=== PATIENT | female | born 1945 | race Hispanic/Latino ===

== ENCOUNTER → 2020-10-21 | Outpatient (CLI) | payer MEDICARE ==
[~2020-10-21] MED LIST: AMLODIPINE BES2.5 MG PO; FAMOTIDINE20 MG PO; HUMULIN R SC; IOPAMIDOL 370 MG/ML 200 ML INFUS..BTL INJ ONE; LOSARTAN POTASS25 MG PO; OMEPRAZOLE40 MG PO; OXYBUTYNIN CHLOR5 M1 PO; SIMVASTATIN40 MG PO; SODIUM CHLORIDE 0.9% 500ML 500 ML ONE; SODIUM CHLORIDE 0.9% 50ML 50 ML ONE
[2020-10-21 11:59] LABS: CREATININE, SERUM 1.12 mg/dL (0.57-1.11)
== END ==
LOC: CT 10:53
PROVIDERS: ATTEND Internal Medicine Gastroenterology
DX: R10.10 Upper abdominal pain, unspecified (principal)
CPT/HCPCS: 36415; 74160; 82565; 84520; 96360; J7040; Q9967

== ENCOUNTER → 2020-10-27 | Day surgery (SDC) | payer MEDICARE ==
[2020-10-24 10:02] LABS: BASOPHILS # (AUTO) 0.1 (0.0-0.1); BASOPHILS % 0.7 % (0.0-1.0); EOSINOPHILS # (AUTO) 0.4 (0.0-0.4); EOSINOPHILS % 4.8 % (0.0-6.0); HEMATOCRIT 39.1 % (34.2-44.1); HEMOGLOBIN 13.3 g/dL (12.0-16.0); LYMPHOCYTES # (AUTO) 1.7 (1.0-3.2); LYMPHOCYTES % 20.4 % (18.0-39.1); MEAN CORPUSCULAR HEMOGLOBIN 30.7 pg (28-32); MEAN CORPUSCULAR VOLUME 90.3 fL (81-99); MONOCYTES # (AUTO) 0.9 (0.2-0.8); MONOCYTES % 10.8 % (4.4-11.3); NEUTROPHILS # (AUTO) 5.3 (2.1-6.9); NEUTROPHILS % 62.9 % (38.7-80.0); PLATELET COUNT 277 x10e3/uL (140-360); RED BLOOD COUNT 4.33 x10e6/uL (3.6-5.1); RED CELL DISTRIBUTION WIDTH 12.2 % (11.7-14.4)
[~2020-10-27] MED LIST changes: +FENTANYL CITRATE/PF 100MCG/2 ML INJ ONE; +GLUCAGON FOR INJ 1 MG VIAL ONE; +HYOSCYAMINE SULFATE 0.5 MG/ML INJ ONE; -IOPAMIDOL 370 MG/ML 200 ML INFUS..BTL INJ ONE; +LIDOCAINE HCL 2% LOCAL INJ 5 ML SDV VIAL INJ ONE; +PROPOFOL IV EMULSION 10 MG/ML 20 ML VIAL ONE; -SODIUM CHLORIDE 0.9% 500ML 500 ML ONE; -SODIUM CHLORIDE 0.9% 50ML 50 ML ONE
[2020-10-27 16:42] VITALS: BP 149/88
== END | disposition home or self-care (01) ==
LOC: OR 12:30
PROVIDERS: ATTEND Internal Medicine Gastroenterology
DX: K21.9 Gastro-esophageal reflux disease without esophagitis (principal); K63.5 Polyp of colon; K31.7 Polyp of stomach and duodenum; K29.70 Gastritis, unspecified, without bleeding; K20.90 Esophagitis, unspecified without bleeding; K44.9 Diaphragmatic hernia without obstruction or gangrene; K57.30 Diverticulosis of large intestine without perforation or abscess without bleeding; K64.8 Other hemorrhoids; R68.89 Other general symptoms and signs; J39.2 Other diseases of pharynx; I10 Essential (primary) hypertension; E11.9 Type 2 diabetes mellitus without complications; R05 Cough; Z01.810 Encounter for preprocedural cardiovascular examination; Z01.812 Encounter for preprocedural laboratory examination; Z20.822 Contact with and (suspected) exposure to COVID-19; Z79.4 Long term (current) use of insulin; Z68.27 Body mass index [BMI] 27.0-27.9, adult
CPT/HCPCS: 36415 ×2; 43239; 45385; 82948; 85025; 88305; 88312; 93005; J1610; J1980; J2001; J2704; J3010; U0002; 45378

== ENCOUNTER → 2020-11-02 | Outpatient (CLI) | payer MEDICARE ==
[~2020-11-02] MED LIST changes: -FENTANYL CITRATE/PF 100MCG/2 ML INJ ONE; -GLUCAGON FOR INJ 1 MG VIAL ONE; -HYOSCYAMINE SULFATE 0.5 MG/ML INJ ONE; +IOPAMIDOL 370 MG/ML 200 ML INFUS..BTL INJ ONE; -LIDOCAINE HCL 2% LOCAL INJ 5 ML SDV VIAL INJ ONE; -PROPOFOL IV EMULSION 10 MG/ML 20 ML VIAL ONE; +SODIUM CHLORIDE 0.9% 50ML 50 ML ONE
[2020-11-02 12:30] LABS: CREATININE, SERUM 1.22 mg/dL (0.57-1.11)
== END ==
LOC: CT 11:39
PROVIDERS: ATTEND Internal Medicine Gastroenterology
DX: R59.9 Enlarged lymph nodes, unspecified (principal)
CPT/HCPCS: 36415; 72193; 82565; 84520; Q9967

== ENCOUNTER → 2022-01-24 | Outpatient (CLI) | payer MEDICARE ==
[~2022-01-24] MED LIST changes: -IOPAMIDOL 370 MG/ML 200 ML INFUS..BTL INJ ONE; +LEXAPRO10 MG PO; +LIPITOR20 MG PO; +METOCLOPRAMIDE10 MG PO; -SODIUM CHLORIDE 0.9% 50ML 50 ML ONE
== END ==
LOC: US 09:47
PROVIDERS: ATTEND Family Medicine
DX: R11.2 Nausea with vomiting, unspecified (principal); R74.01 Elevation of levels of liver transaminase levels
CPT/HCPCS: 76700

== ENCOUNTER 2022-01-26 17:17 | Inpatient (IN) | payer MEDICARE ==
[~2022-01-26] VITALS: Ht 162.6 cm; Wt 62.6 kg
[~2022-01-26 17:17] MED LIST changes: -LEXAPRO10 MG PO; -LIPITOR20 MG PO; -METOCLOPRAMIDE10 MG PO
[2022-01-26] MEDS ORDERED: SODIUM CHLORIDE 0.9% 1000ML 1,000 ML IV ONE (17:45)
[2022-01-26] MEDS ORDERED: ONDANSETRON HCL INJ 2MG/ML 2ML 2 MG/ML VIAL IV PRN ×2 (17:45→18:45)
[2022-01-26 17:48] LABS: BASOPHILS # (AUTO) 0.1 (0.0-0.1); BASOPHILS % 1.3 % (0.0-1.0); EOSINOPHILS # (AUTO) 0.2 (0.0-0.4); EOSINOPHILS % 3.7 % (0.0-6.0); HEMATOCRIT 38.8 % (34.2-44.1); HEMOGLOBIN 13.1 g/dL (12.0-16.0); LYMPHOCYTES # (AUTO) 1.3 (1.0-3.2); MEAN CORPUSCULAR HEMOGLOBIN 30.7 pg (28-32); MEAN CORPUSCULAR HGB CONC 33.8 g/dL (31-35); MEAN CORPUSCULAR VOLUME 90.9 fL (81-99); MONOCYTES # (AUTO) 0.8 (0.2-0.8); MONOCYTES % 14.6 % (4.4-11.3); NEUTROPHILS # (AUTO) 3.1 (2.1-6.9); NEUTROPHILS % 57.2 % (38.7-80.0); PLATELET COUNT 186 x10e3/uL (140-360); RED BLOOD COUNT 4.27 x10e6/uL (3.6-5.1); RED CELL DISTRIBUTION WIDTH 14.6 % (11.7-14.4)
[2022-01-26 18:14] LABS: ALBUMIN 2.6 g/dL (3.5-5.0); ALBUMIN/GLOBULIN RATIO 0.5 (0.8-2.0); CALCIUM 8.5 mg/dL (8.4-10.2); CREATININE, SERUM 1.22 mg/dL (0.57-1.11)
[2022-01-26 18:25] LABS: LIPASE 40 U/L (8-78)
[2022-01-26] MEDS ORDERED: Morphine 4mg INJECTION 4 MG/ML INJ IV PRN (18:45)
[2022-01-26] MEDS ORDERED: SODIUM CHLORIDE FLUSH 10 ML SYR INJ PRN (18:45)
[2022-01-26] MEDS ORDERED: DEXTROSE 50% SYRINGE 50 ML IV PRN (18:45)
[2022-01-26] MEDS ORDERED: IOPAMIDOL 370 MG/ML 100 ML INFUS..BTL INJ ONE (20:46)
[2022-01-26] MEDS: INSULIN REGULAR, HUMAN 100 UNIT/1 ML SQ SCH (21:00)
[2022-01-26 21:48] VITALS: BP 142/73
[2022-01-26 22:09] VITALS: BP 142/73
[2022-01-26 22:30] VITALS: BP 142/73
[2022-01-26 22:31] VITALS: BP 142/73
[2022-01-26 22:32] VITALS: BP 142/73
[2022-01-26] MEDS ORDERED: METOCLOPRAMIDE10 MG PO (23:24)
[2022-01-26] MEDS ORDERED: LIPITOR20 MG PO (23:24)
[2022-01-26] MEDS ORDERED: LEXAPRO10 MG PO (23:24)
[2022-01-27] VITALS (8 sets, daily range): BP systolic 108–133; BP diastolic 64–68
[2022-01-27 06:55] LABS: BASOPHILS # (AUTO) 0.1 (0.0-0.1); BASOPHILS % 1.3 % (0.0-1.0); EOSINOPHILS # (AUTO) 0.4 (0.0-0.4); EOSINOPHILS % 6.3 % (0.0-6.0); HEMATOCRIT 35.6 % (34.2-44.1); HEMOGLOBIN 12.2 g/dL (12.0-16.0); LYMPHOCYTES # (AUTO) 1.6 (1.0-3.2); LYMPHOCYTES % 25.5 % (18.0-39.1); MEAN CORPUSCULAR HEMOGLOBIN 30.7 pg (28-32); MEAN CORPUSCULAR HGB CONC 34.3 g/dL (31-35); MEAN CORPUSCULAR VOLUME 89.4 fL (81-99); MONOCYTES % 15.6 % (4.4-11.3); NEUTROPHILS # (AUTO) 3.2 (2.1-6.9); NEUTROPHILS % 51.1 % (38.7-80.0); PLATELET COUNT 191 x10e3/uL (140-360); RED BLOOD COUNT 3.98 x10e6/uL (3.6-5.1); RED CELL DISTRIBUTION WIDTH 14.6 % (11.7-14.4)
[2022-01-27 07:14] LABS: ALBUMIN 2.3 g/dL (3.5-5.0); ALBUMIN/GLOBULIN RATIO 0.5 (0.8-2.0); ANION GAP 12.6 mmol/L (8-16); CALCIUM 8.2 mg/dL (8.4-10.2); CREATININE, SERUM 0.81 mg/dL (0.57-1.11); POTASSIUM 3.6 mmol/L (3.5-5.1)
[2022-01-27] MEDS: INSULIN REGULAR, HUMAN 100 UNIT/1 ML SQ SCH ×4 (07:30→21:25)
[2022-01-27 10:57] LABS: ALBUMIN 2.4 g/dL (3.5-5.0); BILIRUBIN,DIRECT 4.3 mg/dL (0.0-0.5)
[2022-01-27] MEDS: ESCITALOPRAM OXALATE 10 MG TAB PO SCH (21:26)
[2022-01-28] VITALS (7 sets, daily range): BP systolic 118–154; BP diastolic 64–72
[2022-01-28] MEDS: INSULIN REGULAR, HUMAN 100 UNIT/1 ML SQ SCH ×4 (08:30→21:05)
[2022-01-28] MEDS: URSODIOL 300 MG CAP PO SCH ×2 (15:00→20:58)
[2022-01-28] MEDS: ESCITALOPRAM OXALATE 10 MG TAB PO SCH (21:06)
[2022-01-29] VITALS (7 sets, daily range): BP systolic 112–124; BP diastolic 58–68
[2022-01-29 06:21] LABS: ALBUMIN 2.3 g/dL (3.5-5.0)
[2022-01-29] MEDS ORDERED: DEXTROSE 50% SYRINGE 50 ML IV PRN (07:00)
[2022-01-29] MEDS: URSODIOL 300 MG CAP PO SCH ×3 (08:21→22:22)
[2022-01-29] MEDS: INSULIN LISPRO 100 UNIT/1 ML 3ML VIAL SQ SCH ×4 (08:21→22:24)
[2022-01-29] MEDS: ESCITALOPRAM OXALATE 10 MG TAB PO SCH (22:22)
[2022-01-29] MEDS: INSULIN GLARGINE 100 UNITS/ML VIAL SQ SCH (22:24)
[2022-01-30] VITALS (10 sets, daily range): BP systolic 108–140; BP diastolic 59–91
[2022-01-30 06:17] LABS: ALBUMIN 2.4 g/dL (3.5-5.0); ALBUMIN/GLOBULIN RATIO 0.5 (0.8-2.0); ANION GAP 12.9 mmol/L (8-16); CALCIUM 8.8 mg/dL (8.4-10.2); CREATININE, SERUM 1.01 mg/dL (0.57-1.11); POTASSIUM 3.9 mmol/L (3.5-5.1)
[2022-01-30] MEDS: INSULIN LISPRO 100 UNIT/1 ML 3ML VIAL SQ SCH ×4 (08:11→21:59)
[2022-01-30] MEDS: URSODIOL 300 MG CAP PO SCH ×3 (08:11→21:52)
[2022-01-30] MEDS: INSULIN GLARGINE 100 UNITS/ML VIAL SQ SCH (21:00)
[2022-01-30] MEDS: ESCITALOPRAM OXALATE 10 MG TAB PO SCH (21:52)
[2022-01-31] VITALS (7 sets, daily range): BP systolic 110–126; BP diastolic 57–78
[2022-01-31 05:57] LABS: ALBUMIN 2.1 g/dL (3.5-5.0); ALBUMIN/GLOBULIN RATIO 0.4 (0.8-2.0); ANION GAP 12.5 mmol/L (8-16); CALCIUM 8.7 mg/dL (8.4-10.2); CREATININE, SERUM 1.16 mg/dL (0.57-1.11); POTASSIUM 4.5 mmol/L (3.5-5.1)
[2022-01-31] MEDS: INSULIN LISPRO 100 UNIT/1 ML 3ML VIAL SQ SCH ×4 (07:30→21:47)
[2022-01-31] MEDS: URSODIOL 300 MG CAP PO SCH ×3 (09:00→21:41)
[2022-01-31] MEDS: INSULIN GLARGINE 100 UNITS/ML VIAL SQ SCH (21:00)
[2022-01-31] MEDS: ESCITALOPRAM OXALATE 10 MG TAB PO SCH (21:41)
[2022-02-01] VITALS (8 sets, daily range): BP systolic 105–128; BP diastolic 61–67
[2022-02-01] MEDS: INSULIN LISPRO 100 UNIT/1 ML 3ML VIAL SQ SCH ×4 (07:30→21:30)
[2022-02-01] MEDS: URSODIOL 300 MG CAP PO SCH ×3 (09:00→21:20)
[2022-02-01] MEDS ORDERED: PROPOFOL IV EMULSION 10 MG/ML 20 ML VIAL ONE (11:51)
[2022-02-01] MEDS ORDERED: POVIDONE IODINE 0.05% 0.05 % ML PO ONE (11:51)
[2022-02-01] MEDS: ESCITALOPRAM OXALATE 10 MG TAB PO SCH (21:20)
[2022-02-01] MEDS: INSULIN GLARGINE 100 UNITS/ML VIAL SQ SCH (21:30)
[2022-02-02] VITALS: BP 115/53
[2022-02-02 04:00] VITALS: BP 112/66
[2022-02-02 05:28] LABS: ALBUMIN 2.1 g/dL (3.5-5.0); ANION GAP 13.2 mmol/L (8-16); CALCIUM 8.4 mg/dL (8.4-10.2); CREATININE, SERUM 1.13 mg/dL (0.57-1.11); POTASSIUM 4.2 mmol/L (3.5-5.1)
[2022-02-02 05:29] LABS: ALBUMIN/GLOBULIN RATIO 0.4 (0.8-2.0)
[2022-02-02 08:07] VITALS: BP 120/62
[2022-02-02 09:00] VITALS: BP 120/62
[2022-02-02] MEDS: URSODIOL 300 MG CAP PO SCH ×2 (09:54→15:55)
[2022-02-02] MEDS: INSULIN LISPRO 100 UNIT/1 ML 3ML VIAL SQ SCH ×3 (10:00→17:52)
[2022-02-02 11:27] VITALS: BP 120/62
[2022-02-02 16:04] VITALS: BP 136/65
[2022-02-02] MEDS ORDERED: ONDANSETRON HCL 4 MG ORAL DISINTEGRATING TAB PO PRN (18:00)
== END 2022-02-02 18:53 | disposition home or self-care (01) | DRG 433 ==
LOC: ER 17:23 → ERHOLD 18:35 → MED/SURG 21:45
PROVIDERS: ADMIT Family Medicine; ATTEND Family Medicine
PROC: 0DB78ZX Excision of Stomach, Pylorus, Via Natural or Artificial Opening Endoscopic, Diagnostic (ICD-10-PCS; 2022-02-01)
PROC: 0DB38ZX Excision of Lower Esophagus, Via Natural or Artificial Opening Endoscopic, Diagnostic (ICD-10-PCS; principal; 2022-02-01 13:39)
DX: K74.3 Primary biliary cirrhosis (principal); K76.6 Portal hypertension; K75.4 Autoimmune hepatitis; I10 Essential (primary) hypertension; E11.9 Type 2 diabetes mellitus without complications; E78.00 Pure hypercholesterolemia, unspecified; F41.9 Anxiety disorder, unspecified; F32.A Depression, unspecified; E78.5 Hyperlipidemia, unspecified; K29.70 Gastritis, unspecified, without bleeding; K44.9 Diaphragmatic hernia without obstruction or gangrene; K31.89 Other diseases of stomach and duodenum; Z20.822 Contact with and (suspected) exposure to COVID-19; Z88.1 Allergy status to other antibiotic agents; Z79.4 Long term (current) use of insulin
CPT/HCPCS: 0223U; 36415; 43239; 74177; 74181; 80053; 80076; 82105; 82378; 82948; 83690; 84484; 85025; 86039; 86255; 86301; 88304; 88305; 88312; 88342; 94799; 96372; 99251; 99284; J1815; J1817; J2405; J7030; Q9967

== ENCOUNTER → 2022-03-05 | Outpatient (CLI) | payer MEDICARE ==
[~2022-03-05] MED LIST changes: +LEXAPRO10 MG PO; +LIPITOR20 MG PO; +METOCLOPRAMIDE10 MG PO
[2022-03-05 12:58] LABS: BASOPHILS % 0.1 % (0.0-1.0); EOSINOPHILS # (AUTO) 0.1 (0.0-0.4); EOSINOPHILS % 0.6 % (0.0-6.0); HEMATOCRIT 41.5 % (34.2-44.1); HEMOGLOBIN 14.2 g/dL (12.0-16.0); LYMPHOCYTES % 7.9 % (18.0-39.1); MEAN CORPUSCULAR HEMOGLOBIN 31.1 pg (28-32); MEAN CORPUSCULAR HGB CONC 34.2 g/dL (31-35); MEAN CORPUSCULAR VOLUME 90.8 fL (81-99); MONOCYTES # (AUTO) 0.9 (0.2-0.8); MONOCYTES % 7.2 % (4.4-11.3); NEUTROPHILS # (AUTO) 10.4 (2.1-6.9); NEUTROPHILS % 83.6 % (38.7-80.0); PLATELET COUNT 219 x10e3/uL (140-360); RED BLOOD COUNT 4.57 x10e6/uL (3.6-5.1); RED CELL DISTRIBUTION WIDTH 14.6 % (11.7-14.4)
[2022-03-05 13:23] LABS: ALBUMIN 2.9 g/dL (3.5-5.0); ALBUMIN/GLOBULIN RATIO 0.7 (0.8-2.0); ANION GAP 14.8 mmol/L (8-16); CALCIUM 8.3 mg/dL (8.4-10.2); CREATININE, SERUM 1.41 mg/dL (0.57-1.11); POTASSIUM 4.8 mmol/L (3.5-5.1)
== END ==
LOC: LAB 12:40
PROVIDERS: ATTEND Internal Medicine Gastroenterology
DX: E11.9 Type 2 diabetes mellitus without complications (principal); Z71.3 Dietary counseling and surveillance
CPT/HCPCS: 36415; 80053; 85025

== ENCOUNTER 2022-06-29 16:06 | Emergency (ER) | payer MEDICARE ==
[~2022-06-29] VITALS: Ht 154.9 cm; Wt 67.6 kg
[2022-06-29 16:45] LABS: BASOPHILS % 0.2 % (0.0-1.0); HEMATOCRIT 38.4 % (34.2-44.1); HEMOGLOBIN 13.1 g/dL (12.0-16.0); LYMPHOCYTES # (AUTO) 0.2 (1.0-3.2); LYMPHOCYTES % 3.4 % (18.0-39.1); MEAN CORPUSCULAR HEMOGLOBIN 30.4 pg (28-32); MEAN CORPUSCULAR HGB CONC 34.1 g/dL (31-35); MEAN CORPUSCULAR VOLUME 89.1 fL (81-99); MONOCYTES # (AUTO) 0.2 (0.2-0.8); MONOCYTES % 4.4 % (4.4-11.3); NEUTROPHILS # (AUTO) 4.6 (2.1-6.9); NEUTROPHILS % 91.6 % (38.7-80.0); PLATELET COUNT 156 x10e3/uL (140-360); RED BLOOD COUNT 4.31 x10e6/uL (3.6-5.1); RED CELL DISTRIBUTION WIDTH 11.8 % (11.7-14.4)
[2022-06-29 17:04] LABS: ALBUMIN 3.1 g/dL (3.5-5.0); ALBUMIN/GLOBULIN RATIO 0.9 (0.8-2.0); ANION GAP 13.4 mmol/L (8-16); CALCIUM 8.2 mg/dL (8.4-10.2); CREATININE, SERUM 0.81 mg/dL (0.57-1.11); POTASSIUM 3.4 mmol/L (3.5-5.1)
[2022-06-29 17:17] LABS: CREATINE KINASE MB 0.9 ng/mL (0-5.0)
[2022-06-29] MEDS ORDERED: IOPAMIDOL 370 MG/ML 100 ML INFUS..BTL INJ ONE (18:06)
[2022-06-29] MEDS ORDERED: ONDANSETRON HCL INJ 2MG/ML 2ML 2 MG/ML VIAL IV STA (18:50)
[2022-06-29] MEDS ORDERED: ONDANSETRON ODT8 MG PO (18:53)
[2022-06-29 20:03] VITALS: BP 124/70
== END 2022-06-29 20:05 | disposition home or self-care (01) ==
LOC: ER 16:11
DX: R10.84 Generalized abdominal pain (principal); R11.2 Nausea with vomiting, unspecified; E11.65 Type 2 diabetes mellitus with hyperglycemia; I10 Essential (primary) hypertension; E78.5 Hyperlipidemia, unspecified; F41.9 Anxiety disorder, unspecified; F32.A Depression, unspecified; Z20.822 Contact with and (suspected) exposure to COVID-19; R94.31 Abnormal electrocardiogram [ECG] [EKG]
CPT/HCPCS: 36415; 71045; 74177; 80053; 82550; 82553; 82948; 84484; 85025; 93005; 99284; J2405; Q9967; U0002

== ENCOUNTER 2024-08-17 17:45 | Emergency (ER) | payer MEDICARE ==
[~2024-08-17] VITALS: Ht 154.9 cm; Wt 63.3 kg
[~2024-08-17 17:45] MED LIST changes: +FARXIGA10 MG PO; +FOLIC ACID0.4 MG PO; +HUMULIN N100 UNITS/ SC; +LANTUS 3ML100 UNITS/ SQ; +LEVOCETIRIZINE D5 MG PO; +METHOTREXATE2.5 MG PO; +NEURONTIN100 MG PO; +ONDANSETRON ODT8 MG PO; +PANTOPRAZOLE SO40 MG PO; +PLAQUENIL200 MG PO
[2024-08-17] MEDS: ACETAMINOPHEN 325 MG TAB PO ONE (18:30)
[2024-08-17] MEDS ORDERED: TYLENOL325 MG PO (20:09)
[2024-08-17] MEDS ORDERED: IBU600 MG PO (20:09)
[2024-08-17 20:27] VITALS: PULSE 61; RESP 16; TEMP 98.4
[2024-08-17 20:56] VITALS: BP 141/63; PULSE 61; RESP 16; TEMP 98.4; O2SAT 99
== END 2024-08-17 21:00 | disposition home or self-care (01) ==
LOC: FSED 17:49
DX: S63.591A Other specified sprain of right wrist, initial encounter (principal); S63.8X1A Sprain of other part of right wrist and hand, initial encounter; W18.39XA Other fall on same level, initial encounter; Y92.89 Other specified places as the place of occurrence of the external cause; I10 Essential (primary) hypertension; E11.9 Type 2 diabetes mellitus without complications; E78.5 Hyperlipidemia, unspecified; F41.9 Anxiety disorder, unspecified; F32.A Depression, unspecified
CPT/HCPCS: 99284

== ENCOUNTER → 2024-08-18 | Outpatient (REF) | payer MEDICARE ==
[~2024-08-18] MED LIST changes: +IBU600 MG PO; +TYLENOL325 MG PO
== END ==
LOC: CT 14:15
PROVIDERS: ATTEND Family Medicine
DX: S09.90XA Unspecified injury of head, initial encounter (principal)
CPT/HCPCS: 70450